=== PATIENT | female | born 1955 | race Caucasian/White ===

== ENCOUNTER 2016-05-17 13:17 | Observation (INO) ==
--- NOTE | 2016-05-17 13:25 | Emergency Department Note ---
Disposition Clinical Impression: UTI (urinary tract infection), Dehydration, Anorexia, Elevated liver enzymes Disposition: Admitted As Inpatient Referrals: NO,PCP [Non-Partnered Physician] - Forms: ED Satisfaction Letter General Adult HPI - General Chief complaint: ED Syncope Stated complaint: syncope Time Seen by Provider: 05/17/16 13:21 Nursing Notes Reviewed: Yes Vital Signs Reviewed: Yes - Related Data Home Medications Medication Instructions Recorded Confirmed Lovastatin [Altoprev] 20 mg PO QPM 12/07/14 03/08/16 Nadolol [Corgard] 40 mg PO QPM 12/07/14 03/08/16 Rizatriptan Benzoate [Maxalt] 10 mg PO AD PRN 12/07/14 03/08/16 Topiramate [Topamax] 100 mg PO QPM 12/07/14 03/08/16 TraZODone 50 mg PO HS 12/07/14 03/08/16 Ibuprofen [Motrin] 600 mg PO Q6HR PRN 03/08/16 03/08/16 Lipase/Protease/Amylase [Creon Dr 1 each PO 03/08/16 12,000 Units Capsule] Venlafaxine [Effexor] 75 mg PO DAILY 03/08/16 03/08/16 Previous Rx's Medication Instructions Recorded OxyCODONE Immed Rel [Roxicodone 5 5 mg PO Q6HR PRN #20 tablet 03/07/16 MG] Allergies Allergy/AdvReac Type Severity Reaction Status Date / Time No Known Allergies Allergy Verified 05/17/16 13:24 Past Medical History - Past Medical History Medical history: Reports: hyperlipidemia, migraine Surgical history: Reports: appendectomy, breast surgery, other Psychiatric history: Reports: anxiety TOBACCO BUYER history: Reports: other - Social History Smoking Status: Never smoker Smokeless Tobacco Status: No Alcohol use: Reports: unknown, occasionally Drug use: Reports: none Course Vital Signs Temperature 97.4 F L 05/17/16 13:20 Pulse Rate 77 05/17/16 13:20 Respiratory Rate 14 05/17/16 13:20 Blood Pressure 120/75 05/17/16 13:20 O2 Sat by Pulse Oximetry 97 05/17/16 13:20 Temperature 97.4 F L 05/17/16 13:20 Pulse Rate 77 05/17/16 13:20 Respiratory Rate 14 05/17/16 13:20 Blood Pressure 120/75 05/17/16 13:20 O2 Sat by Pulse Oximetry 97 05/17/16 13:20 Oxygen Delivery Oxygen Delivery Room Air Medical Decision Making - MDM Narrative Medical decision making narrative: I examined this patient and my medical decision-making was reviewed with the .NET ARCHITECT/PA/Advanced Practice Nurse/Resident Physician. I agree with the documented findings, disposition and treatment plan as described except to the extent set forth below. Patient seen on arrival with EMS and Dr. Gao, agree with his evaluation and management plan supervised the care of the patient 's stay. Patient was diagnosed UTI has been feeling weak. Had a syncopal episode home today were getting in the shower. Denies any injuries. Stable vital signs per medics. According to reevaluate her check a urinalysis vital signs in EKG. She is in agreement with plan. She denies any pain and is nontoxic in appearance. 1354 hrs.: Patient's daughter is here and says that she just has not been doing well last couple days was prescribed an antibiotic for UTI by her primary care physician this week. She has been taking it this does not appear to be getting better she has been lying around a lot denies any pain just not been feeling well and had a near syncopal episode when she get into the shower today. We will go ahead and continue her workup plan and reassessment. Head CT 05/17/16 14:13 IMPRESSION: No acute intracranial abnormality. D/ / Ken Robin MD / Ken Robin MD Interpreting Provider: Ken Robin MD 1650 hrs: Patient is still not hungry not drinking well. She is improved with her hydration here. Her LFTs using the 67 arranger now the 200 range. She does have a positive acetaminophen but she will he took 1 g today. Denies any chronic acetaminophen ingestion. Were going to go and bring her into the hospital. And I think she will do better with getting fluids and hydration overnight and then hopefully go home tomorrow. She is in agreement with this plan. We discussed this with the hospitalist. - Lab Data Result diagrams: 05/17/16 14:39 02/24/17 14:39 Lab Results 05/17/16 05/17/16 05/17/16 Range/Units 14:21 14:39 14:39 WBC 7.8 (4.3-11.1) K/mcL RBC 4.93 (3.82-4.97) M/mcL Hgb 13.4 (11.5-15.4) g/dL Hct 41.9 (35.3-44.9) % MCV 85.0 (83.0-100.0) fL MCH 27.2 L (28.0-33.3) pg MCHC 32.0 (31.6-35.5) g/dL RDW 14.4 (11.5-14.5) % Plt Count 109 L (140-400) K/mcL MPV 9.8 (9.4-12.4) fL Immature Gran % 0.5 (0-4) % Seg Neutrophils % 92.4 % Lymphocytes % 4.4 % Monocytes % 2.2 % Eosinophils % 0.1 % Basophils % 0.4 % Neutrophils # 7.2 (1.6-8.9) K/mcL Lymphocytes # 0.3 L (0.6-4.6) K/mcL Monocytes # 0.2 (0.0-1.3) K/mcL Eosinophils # 0.0 (0.0-0.6) K/mcL Basophils # 0.0 (0.0-0.2) K/mcL Sodium 137 (136-145) mEq/L Potassium 3.9 (3.5-4.5) mEq/L Chloride 108 (98-109) mEq/L Carbon Dioxide 18 L (19-29) mEq/L BUN 18 (7-20) mg/dL Creatinine 0.76 (0.57-1.11) mg/dL Est GFR ( Amer) > 60 (> 60) Est GFR (Non-Af Amer) > 60 (> 60) BUN/Creatinine Ratio 24 (6-26) Glucose 172 H (70-99) mg/dL Calculated Osmolality 290 (280-300) Calcium 9.0 (8.6-10.8) mg/dL Total Bilirubin 1.9 H (0.2-1.2) mg/dL AST 226 H (5-34) Units/L ALT 210 H (0-55) Units/L Alkaline Phosphatase 265 H (38-126) Units/L Creatine Kinase 49 (29-168) Units/L Troponin I 0.00 (0-0.03) ng/mL Serum Total Protein 7.1 (6.0-8.3) g/dL Albumin 3.3 L (3.5-5.0) g/dL Globulin 3.8 H (2.4-3.5) g/dL Albumin/Globulin Ratio 0.9 L (1.1-2.2) Lipase 40 (8-78) Units/L Urine Color (Yellow) Urine Clarity (Clear) Urine pH Ur Specific [place] (1.010-1.025) Urine Protein Urine Glucose (UA) Urine Ketones Urine Blood Urine Nitrite Urine Bilirubin Urine Urobilinogen Ur Leukocyte Esterase Urine Microscopic RBC (0-3) per hpf Urine Microscopic WBC (0-3) per hpf Ur Squamous Epith Cells (None-Few) per lpf Amorphous Sediment (Few) Urine Bacteria (None-Few) per hpf Hyaline Casts (None-Few) per lpf Granular Casts (None Seen) per lpf Urine Mucus (Few) Ur Culture Indicated? (NO) Acetaminophen 7.0 L (10-30) mcg/mL 05/17/16 Range/Units 15:23 WBC (4.3-11.1) K/mcL RBC (3.82-4.97) M/mcL Hgb (11.5-15.4) g/dL Hct (35.3-44.9) % MCV (83.0-100.0) fL MCH (28.0-33.3) pg MCHC (31.6-35.5) g/dL RDW (11.5-14.5) % Plt Count (140-400) K/mcL MPV (9.4-12.4) fL Immature Gran % (0-4) % Seg Neutrophils % % Lymphocytes % % Monocytes % % Eosinophils % % Basophils % % Neutrophils # (1.6-8.9) K/mcL Lymphocytes # (0.6-4.6) K/mcL Monocytes # (0.0-1.3) K/mcL Eosinophils # (0.0-0.6) K/mcL Basophils # (0.0-0.2) K/mcL Sodium (136-145) mEq/L Potassium (3.5-4.5) mEq/L Chloride (98-109) mEq/L Carbon Dioxide (19-29) mEq/L BUN (7-20) mg/dL Creatinine (0.57-1.11) mg/dL Est GFR ( Amer) (> 60) Est GFR (Non-Af Amer) (> 60) BUN/Creatinine Ratio (6-26) Glucose (70-99) mg/dL Calculated Osmolality (280-300) Calcium (8.6-10.8) mg/dL Total Bilirubin (0.2-1.2) mg/dL AST (5-34) Units/L ALT (0-55) Units/L Alkaline Phosphatase (38-126) Units/L Creatine Kinase (29-168) Units/L Troponin I (0-0.03) ng/mL Serum Total Protein (6.0-8.3) g/dL Albumin (3.5-5.0) g/dL Globulin (2.4-3.5) g/dL Albumin/Globulin Ratio (1.1-2.2) Lipase (8-78) Units/L Urine Color [place] A (Yellow) Urine Clarity Cloudy A (Clear) Urine pH TNP Ur Specific [place] 1.022 (1.010-1.025) Urine Protein TNP Urine Glucose (UA) TNP Urine Ketones TNP Urine Blood TNP Urine Nitrite TNP Urine Bilirubin TNP Urine Urobilinogen TNP Ur Leukocyte Esterase TNP Urine Microscopic RBC 0-3 (0-3) per hpf Urine Microscopic WBC 5-15 H (0-3) per hpf Ur Squamous Epith Cells Many H (None-Few) per lpf Amorphous Sediment Moderate H (Few) Urine Bacteria None Seen (None-Few) per hpf Hyaline Casts Many H (None-Few) per lpf Granular Casts Few H (None Seen) per lpf Urine Mucus Many H (Few) Ur Culture Indicated? YES A (NO) Acetaminophen (10-30) mcg/mL
[2016-05-17] MEDS ORDERED: 0.9 % Sodium Chloride 1,000 ML IVC ONE (14:25)
[2016-05-17 14:48] LABS: Basophils % 0.4 %; Eosinophils % 0.1 %; Hematocrit 41.9 % (35.3-44.9); Hemoglobin 13.4 g/dL (11.5-15.4); Immature Granulocytes % 0.5 % (0-4); Lymphocytes # 0.3 K/mcL (0.6-4.6); Lymphocytes % 4.4 %; Mean Corpuscular Hemoglobin 27.2 pg (28.0-33.3); Mean Platelet Volume 9.8 fL (9.4-12.4); Monocytes # 0.2 K/mcL (0.0-1.3); Monocytes % 2.2 %; Neutrophils # 7.2 K/mcL (1.6-8.9); Platelet Count 109 K/mcL (140-400); Red Blood Count 4.93 M/mcL (3.82-4.97); Red Cell Distribution Width 14.4 % (11.5-14.5); Segmented Neutrophils % 92.4 %
[2016-05-17 15:05] LABS: Alanine Aminotransferase 210 Units/L (0-55); Albumin 3.3 g/dL (3.5-5.0); Albumin/Globulin Ratio 0.9 (1.1-2.2); Alkaline Phosphatase 265 Units/L (38-126); Aspartate Amino Transferase 226 Units/L (5-34); BUN/Creatinine Ratio 24 (6-26); Bilirubin,Total 1.9 mg/dL (0.2-1.2); Blood Urea Nitrogen 18 mg/dL (7-20); Carbon Dioxide 18 mEq/L (19-29); Chloride 108 mEq/L (98-109); Creatine Kinase 49 Units/L (29-168); Globulin 3.8 g/dL (2.4-3.5); Glucose 172 mg/dL (70-99); Lipase 40 Units/L (8-78); Osmolality,Calculated 290 (280-300); Potassium 3.9 mEq/L (3.5-4.5); Sodium 137 mEq/L (136-145); Total Protein 7.1 g/dL (6.0-8.3); eGFR For African Americans > 60 (> 60); eGFR For Non-African Americans > 60 (> 60)
[2016-05-17] MEDS ORDERED: Acetaminophen 325 MG TABLET PO ONE (15:16)
[2016-05-17] MEDS ORDERED: *HR* Nalbuphine 20 MG/ML AMPUL IVP ONE (15:19)
[2016-05-17 15:41] LABS: Clarity,Urine Cloudy (Clear); Color,Urine Orange (Yellow); Specific Gravity,Urine 1.022 (1.010-1.025)
[2016-05-17 15:44] LABS: Bacteria,Urine None Seen per hpf (None-Few); RBC,Urine 0-3 per hpf (0-3); Squamous Epithelial Cell,Urine Many per lpf (None-Few)
[2016-05-17 15:59] LABS: Amorphous Sediment,Urine Moderate (Few); Granular Casts,Urine Few per lpf (None Seen); Hyaline Casts,Urine Many per lpf (None-Few); Mucus,Urine Many (Few)
--- NOTE | 2016-05-17 16:12 | Emergency Department Note ---
Disposition Clinical Impression: Dehydration, Anorexia, Elevated liver enzymes UTI (urinary tract infection) Qualifiers: Urinary tract infection type: site unspecified Hematuria presence: with hematuria Qualified Code(s): N39.0 - Urinary tract infection, site not specified ; R31.9 - Hematuria, unspecified Disposition: Admitted As Inpatient Referrals: NO,PCP [Non-Partnered Physician] - Forms: ED Satisfaction Letter General Adult HPI - General Chief complaint: ED Syncope Stated complaint: syncope Time Seen by Provider: 05/17/16 13:21 Source: EMS Nursing Notes Reviewed: Yes Vital Signs Reviewed: Yes - History of Present Illness HPI Narrative: Mrs. Nicholas, 60-year-old female, presents from home by EMS with chief complaint of a syncopal episode. Onset just prior to arrival. Patient lives at home with her . Her daughter has been checking on her. Patient was diagnosed with UTI last Friday and has been staying in bed since with decreased by mouth intake. Patient's daughter visited her this morning in her home and gave her a glass of water; patient had no appetite at that time. At lunch, patient revisited her mother who had no appetite for a milkshake. Patient assisted mother to her shower with shower chair. Patient's daughter describes watching her mother become pale, with blank stare, cyanotic lips, unresponsive. The patient. Her mother out of the shower and later on the floor after which she called EMS. On EMS arrival, patient was alert, oriented, talkative, with no memory of this syncopal episode. PMH: Hypertension, hyperlipidemia, chronic migraine. PSH: Whipple, cholecystectomy, appendectomy. Patient's UTI was diagnosed Friday by Jahaira Travis, nurse practitioner for Dr. Hillman. Pain Scale: 3 - Related Data Home Medications Medication Instructions Recorded Confirmed Lovastatin [Altoprev] 20 mg PO QPM 12/07/14 03/08/16 Nadolol [Corgard] 40 mg PO QPM 12/07/14 03/08/16 Rizatriptan Benzoate [Maxalt] 10 mg PO AD PRN 12/07/14 03/08/16 Topiramate [Topamax] 100 mg PO QPM 12/07/14 03/08/16 TraZODone 50 mg PO HS 12/07/14 03/08/16 Ibuprofen [Motrin] 600 mg PO Q6HR PRN 03/08/16 03/08/16 Lipase/Protease/Amylase [Creon Dr 1 each PO 03/08/16 12,000 Units Capsule] Venlafaxine [Effexor] 75 mg PO DAILY 03/08/16 03/08/16 Previous Rx's Medication Instructions Recorded OxyCODONE Immed Rel [Roxicodone 5 5 mg PO Q6HR PRN #20 tablet 03/07/16 MG] Allergies Allergy/AdvReac Type Severity Reaction Status Date / Time No Known Allergies Allergy Verified 05/17/16 13:24 All systems ED: reviewed and negative except as stated. Constitutional: Reports: fever, chills, weakness Eyes: Denies: vision change ENT ED: Denies: congestion, dysphagia Cardiovascular: Reports: dyspnea on exertion. Denies: chest pain, palpitations Respiratory: Denies: cough, dyspnea, wheezes, hemoptysis Gastrointestinal: Reports: nausea. Denies: abdominal pain, vomiting, diarrhea, constipation, hematemesis, melena, hematochezia Genitourinary: Reports: urgency, dysuria, frequency Musculoskeletal: Denies: back pain, neck pain Integumentary: Denies: rash, abrasion, lesions Neurological: Reports: headache, weakness. Denies: numbness, paresthesias, confusion, vertigo Hematological/Lymphatic: Denies: easy bleeding, easy bruising Past Medical History - Past Medical History Medical history: Reports: hyperlipidemia, migraine Surgical history: Reports: appendectomy, breast surgery, other Psychiatric history: Reports: anxiety RESPITE PROVIDER history: Reports: other - Social History Smoking Status: Never smoker Smokeless Tobacco Status: No Alcohol use: Reports: unknown, occasionally Drug use: Reports: none Physical Exam General: Patient is alert, oriented, and in no acute distress. She is severing beneath the blankets. HEENT: No facial asymmetry. Head is normocephalic and atraumatic. PERRLA, EOMI. trachea midline. Cardiovascular: Heart regular rate and rhythm without clicks, rubs, gallops, or murmurs. No JVD. PMI nondisplaced. No pedal edema. Bilateral radial and posterior tibial pulses 2+. Respiratory: Symmetric chest rise with good respiratory effort. Bilateral breath sounds are clear without wheezing, crackles, or rhonchi. Abdomen: Scaphoid. Bowel sounds present normoactive x-4 quadrants. Abdomen is soft, nondistended, no guarding. Mild diffuse tenderness. No organomegaly noted. Musculoskeletal: Muscle strength 5/5 and symmetric bilaterally in upper and lower extremities. DTRs 2/4 and symmetric bilaterally in upper and lower extremities. Neuro: Cranial nerves II through XII without deficit. Sensation light touch intact. Psych: Patient's affect is appropriate for situation. - General General appearance: alert, in no apparent distress Course Course Narrative: Patient's lab work is concerning for elevated AST, LT, and ALP. She is status post Whipple procedure last May. 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 The mass was benign and she has been cleared by her surgeon. Pancreatic function is normal today. Patient's urinalysis is suspicious for UTI; she is currently taking iridium explaining the orange color. No urine bacteria were seen however there were casts, mucus, significant nitrites, and significant leukocyte esterase as well as white blood cells present. Patient denies history of alcohol abuse, IV drug use, or history of known previous hepatitis. After discussion with the patient and her multiple family members bedside, we have come to a collective agreement to admit the patient for elevated liver enzymes, dysuria, anorexia, dehydration. Patient's does not feel that he can adequately take care of her at home at this time. Vital Signs Temperature 97.4 F L 05/17/16 13:20 Pulse Rate 77 05/17/16 13:20 Respiratory Rate 14 05/17/16 13:20 Blood Pressure 120/75 05/17/16 13:20 O2 Sat by Pulse Oximetry 97 05/17/16 13:20 Temperature 97.4 F L 05/17/16 13:20 Pulse Rate 77 05/17/16 13:20 Respiratory Rate 14 05/17/16 13:20 Blood Pressure 120/75 05/17/16 13:20 O2 Sat by Pulse Oximetry 97 05/17/16 13:20 Oxygen Delivery Oxygen Delivery Room Air Medical Decision Making - Lab Data Result diagrams: 05/17/16 14:39 05/17/16 14:39 Lab Results 05/17/16 05/17/16 05/17/16 Range/Units 14:21 14:39 14:39 WBC 7.8 (4.3-11.1) K/mcL RBC 4.93 (3.82-4.97) M/mcL Hgb 13.4 (11.5-15.4) g/dL Hct 41.9 (35.3-44.9) % MCV 85.0 (83.0-100.0) fL MCH 27.2 L (28.0-33.3) pg MCHC 32.0 (31.6-35.5) g/dL RDW 14.4 (11.5-14.5) % Plt Count 109 L (140-400) K/mcL MPV 9.8 (9.4-12.4) fL Immature Gran % 0.5 (0-4) % Seg Neutrophils % 92.4 % Lymphocytes % 4.4 % Monocytes % 2.2 % Eosinophils % 0.1 % Basophils % 0.4 % Neutrophils # 7.2 (1.6-8.9) K/mcL Lymphocytes # 0.3 L (0.6-4.6) K/mcL Monocytes # 0.2 (0.0-1.3) K/mcL Eosinophils # 0.0 (0.0-0.6) K/mcL Basophils # 0.0 (0.0-0.2) K/mcL Sodium 137 (136-145) mEq/L Potassium 3.9 (3.5-4.5) mEq/L Chloride 108 (98-109) mEq/L Carbon Dioxide 18 L (19-29) mEq/L BUN 18 (7-20) mg/dL Creatinine 0.76 (0.57-1.11) mg/dL Est GFR ( Amer) > 60 (> 60) Est GFR (Non-Af Amer) > 60 (> 60) BUN/Creatinine Ratio 24 (6-26) Glucose 172 H (70-99) mg/dL Calculated Osmolality 290 (280-300) Calcium 9.0 (8.6-10.8) mg/dL Total Bilirubin 1.9 H (0.2-1.2) mg/dL AST 226 H (5-34) Units/L ALT 210 H (0-55) Units/L Alkaline Phosphatase 265 H (38-126) Units/L Creatine Kinase 49 (29-168) Units/L Troponin I 0.00 (0-0.03) ng/mL Serum Total Protein 7.1 (6.0-8.3) g/dL Albumin 3.3 L (3.5-5.0) g/dL Globulin 3.8 H (2.4-3.5) g/dL Albumin/Globulin Ratio 0.9 L (1.1-2.2) Lipase 40 (8-78) Units/L Urine Color (Yellow) Urine Clarity (Clear) Urine pH Ur Specific [place] (1.010-1.025) Urine Protein Urine Glucose (UA) Urine Ketones Urine Blood Urine Nitrite Urine Bilirubin Urine Urobilinogen Ur Leukocyte Esterase Urine Microscopic RBC (0-3) per hpf Urine Microscopic WBC (0-3) per hpf Ur Squamous Epith Cells (None-Few) per lpf Amorphous Sediment (Few) Urine Bacteria (None-Few) per hpf Hyaline Casts (None-Few) per lpf Granular Casts (None Seen) per lpf Urine Mucus (Few) Ur Culture Indicated? (NO) Acetaminophen 7.0 L (10-30) mcg/mL 05/17/16 Range/Units 15:23 WBC (4.3-11.1) K/mcL RBC (3.82-4.97) M/mcL Hgb (11.5-15.4) g/dL Hct (35.3-44.9) % MCV (83.0-100.0) fL MCH (28.0-33.3) pg MCHC (31.6-35.5) g/dL RDW (11.5-14.5) % Plt Count (140-400) K/mcL MPV (9.4-12.4) fL Immature Gran % (0-4) % Seg Neutrophils % % Lymphocytes % % Monocytes % % Eosinophils % % Basophils % % Neutrophils # (1.6-8.9) K/mcL Lymphocytes # (0.6-4.6) K/mcL Monocytes # (0.0-1.3) K/mcL Eosinophils # (0.0-0.6) K/mcL Basophils # (0.0-0.2) K/mcL Sodium (136-145) mEq/L Potassium (3.5-4.5) mEq/L Chloride (98-109) mEq/L Carbon Dioxide (19-29) mEq/L BUN (7-20) mg/dL Creatinine (0.57-1.11) mg/dL Est GFR ( Amer) (> 60) Est GFR (Non-Af Amer) (> 60) BUN/Creatinine Ratio (6-26) Glucose (70-99) mg/dL Calculated Osmolality (280-300) Calcium (8.6-10.8) mg/dL Total Bilirubin (0.2-1.2) mg/dL AST (5-34) Units/L ALT (0-55) Units/L Alkaline Phosphatase (38-126) Units/L Creatine Kinase (29-168) Units/L Troponin I (0-0.03) ng/mL Serum Total Protein (6.0-8.3) g/dL Albumin (3.5-5.0) g/dL Globulin (2.4-3.5) g/dL Albumin/Globulin Ratio (1.1-2.2) Lipase (8-78) Units/L Urine Color [place] A (Yellow) Urine Clarity Cloudy A (Clear) Urine pH TNP Ur Specific [place] 1.022 (1.010-1.025) Urine Protein TNP Urine Glucose (UA) TNP Urine Ketones TNP Urine Blood TNP Urine Nitrite TNP Urine Bilirubin TNP Urine Urobilinogen TNP Ur Leukocyte Esterase TNP Urine Microscopic RBC 0-3 (0-3) per hpf Urine Microscopic WBC 5-15 H (0-3) per hpf Ur Squamous Epith Cells Many H (None-Few) per lpf Amorphous Sediment Moderate H (Few) Urine Bacteria None Seen (None-Few) per hpf Hyaline Casts Many H (None-Few) per lpf Granular Casts Few H (None Seen) per lpf Urine Mucus Many H (Few) Ur Culture Indicated? YES A (NO) Acetaminophen (10-30) mcg/mL
[2016-05-17] MEDS ORDERED: Naloxone 0.4 MG/ML INJ IVP PRN (18:32)
[2016-05-17] MEDS ORDERED: Ondansetron 4 MG/2 ML VIAL IVP PRN (18:33)
[2016-05-17] MEDS ORDERED: Fluticasone Propionate Nasal 50 MCG/SPRAY BOTTLE NS PRN (18:40)
--- NOTE | 2016-05-17 18:41 | Internal Med History&Physical ---
Date of Encounter: 05/17/16 Time of Encounter: 18:00 Assessment and Plan (1) Episode of syncope Current visit: Yes Status: Acute 1 patient has been experiencing chills and achiness fatigue recent diagnosis of UTI. Patient has been in bed for approximately 4 days with poor oral intake. She had an unresponsive episode after getting out of bed.-Suspect this is related to orthostatic changes as well as dehydration. We will obtain orthostatic vitals 2. We will give IV fluids 3. fall precautions 4 continuous cardiac monitoring Qualifiers: Syncope type: unspecified Qualified Code(s): R55 - Syncope and collapse (2) Elevated liver enzymes Current visit: Yes Status: Acute 1 AST 226- was 73 on 10/19/15, ALT 210-62.7, alkaline phosphatase 265 - 140 on 10/19/15. Patient has had steady weight loss over the past year status post Whipple procedure in May 2015 at [facility]. 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 The mass was benign she had been cleared by her surgeon. The patient states that surgery had been monitoring her liver enzymes in the hip and slightly elevated he was not considered but they have not been this high. Suspect this is related to patient's weight loss as well as patient's recent illness and she is on multiple medications including a statin could cause the increase. We will hold statin and other medications for now. Recheck liver enzymes have patient follow-up as outpatient [address] of abdomen 3 avoid hepatotoxins (3) Hyperlipidemia Current visit: No Status: Chronic We will hold statin for now due to elevated liver enzymes Qualifiers: Hyperlipidemia type: unspecified Qualified Code(s): E78.5 - Hyperlipidemia , unspecified (4) UTI (urinary tract infection) Current visit: Yes Status: Acute 1 patient was treated as outpatient for acute cystitis. She had positive nitrates as well as leuk esterase and urinalysis. She was started on Macrobid and Pyridium. We will hold Macrobid for now due to elevated liver enzymes and start on Rocephin We will obtain urine culture prior to initiation of IV antibiotic Qualifiers: Urinary tract infection type: acute cystitis Hematuria presence: without hematuria Qualified Code(s): N30.00 - Acute cystitis without hematuria (5) DVT prophylaxis Current visit: Yes Status: Acute POLLY turner Internal Medicine - H&P: HPI Chief complaint: syncope Admitted From: Emergency Dept Plans for Post Hospital Care: Home History of present illness: Ms. Nicholas is a 60 year old female hyperlipidemia, chronic migraine s/p 2015. According the patient she was diagnosed on Friday with a UTI and was started on Macrobid and Pyridium. She should complaints of fever chills body aches. She has been in bed since Friday and has decreased oral intake. Her daughter visited her this morning she did consume some toast and water . At lunchtime daughter returned patient still has no appetite and a daughter assisted her up into a shower chair for shower. He the patient became pale blank stare and cyanotic lips and unresponsive. The daughter called EMS. Upon arrival patient was alert and oriented and had no memory of the syncopal episode. She was transported to the ER for evaluation. According to ER notes CT of head was negative for any acute intracranial abnormality. Lab work was unremarkable except for patient did have elevated AST and ALTs. Urinalysis was positive for nitrates small amount leuk esterase. Urine culture was negative for growth. Patient was given IV fluids some Zofran. She has been admitted for further workup and evaluation. Presently the patient is alert appropriate she denies any chest pain or shortness of breath. At present time her systolic blood pressure is 88 rest vitals are stable. Complains of recent hx of N/V weight loss [place], lightheadedness. Denies any CP SOB or palpitations I review the case with who agrees with plan Past Med Surg Social Fam HX - Past Medical History Medical history: hyperlipidemia, migraine Psychiatric history: anxiety - Past Surgical History Surgical History: appendectomy, breast surgery, other - Social History Smoking Status: Never smoker Smokeless Tobacco Status: No Alcohol use: occasionally Drug use: none - Family History Mother Living Status: Hx Family Cardiac Disorders: Yes (cva) Hx Family Endocrine Disorder: Yes (dm) Father Living Status: Hx Family Cardiac Disorders: Yes (Reported mi, patient was estranged from father ) Internal Medicine - H&P: Meds Lovastatin [Altoprev] 20 mg PO QPM 12/07/14 [History] Nadolol [Corgard] 40 mg PO QPM 12/07/14 [History] Rizatriptan Benzoate [Maxalt] 10 mg PO DAILY PRN 12/07/14 [History] Topiramate [Topamax] 100 mg PO QPM 12/07/14 [History] TraZODone 50 mg PO HS 12/07/14 [History] Lipase/Protease/Amylase [Louise Bearden 12,000 Units Capsule] 2 each PO TIDWM [History] Venlafaxine [Effexor] 75 mg PO DAILY 03/08/16 [History] Fluticasone Propionate Nasal [Flonase] 50 - 100 mcg NS DAILY PRN 05/17/16 [ History] Nitrofurantoin (BID) [Macrobid] 100 mg PO Q12H 05/17/16 [History] Ondansetron ODT [Zofran ODT] 4 mg SL Q4-6H PRN 05/17/16 [History] Allergies No Known Allergies Allergy (Verified 05/17/16 13:24) All Systems PM: A 10-system review of systems was performed and is negative for pertinent findings except as documented above in the HPI. - Constitutional Constitutional: anorexia, chills, fatigue, weakness - Cardiovascular Cardiovascular ROS IM: no chest pain, no diaphoresis, no dyspnea, no lightheadedness, no palpitations, no syncope - Respiratory Respiratory: no cough, no dyspnea, no wheezing, no excessive phlegm production - Gastrointestinal Gastrointestinal: early satiety, no abdominal pain, no diarrhea, no hematemesis , no hematochezia, no melena, no nausea, no vomiting - Genitourinary Genitourinary: dysuria, no change in urinary stream, no flank pain, no hematuria - Neurological Neurological ROS: headache(s), no confusion, no convulsions, no focal weakness, no numbness, no tingling, no tremor(s) - Constitutional Vitals: Temp Pulse Resp BP Pulse Ox 97.4 F L 77 14 93/54 97 05/17/16 13:20 05/17/16 13:20 05/17/16 18:08 05/17/16 18:08 05/17/16 13:20 General appearance: Present: A&O X 3, underweight, answers questions appropriately - Head Head exam: Present: atraumatic, normocephalic - Eye Eye exam: Present: PERRL, conjuntiva pink, sclera anicteric Pupils: Present: PERRL - Neck Neck exam general surgery: Present: supple, trachea midline. Absent: lymphadenopathy - Respiratory Respiratory exam: Present: CTAB. Absent: accessory muscle use, rales, rhonchi, wheezes - Cardiovascular Cardiovascular exam: Present: RRR, +S1, +S2. Absent: diastolic murmur, gallop, rubs, systolic murmur - GI/Abdominal GI/Abdominal exam: Present: normal bowel sounds, soft, tenderness, no peritoneal signs. Absent: distended Additional comments: diffuse abd tenderness on palpation - Extremities Exam Extremities exam: Present: warm, radial pulses palpable and symetrical. Absent : calf tenderness, cyanotic, pedal edema - Neurological Exam Neurological exam: Present: CN II-XII intact, oriented X3, no focal deficits. Absent: pronater drift, facial droop, speech deficit - Skin Skin exam: Present: dry, intact Internal Med - H&P Results - Labs CBC & Chem 7: 05/17/16 14:39 05/17/16 14:39 - Diagnostic Studies CT scan - head Additional comments: per radiology read no acute intracranial abnormalities
[2016-05-17] MEDS: 0.9 % Sodium Chloride 1,000 ML IVC SCH (19:00)
[2016-05-17] MEDS: Topiramate 100 MG TABLET PO SCH (22:25)
[2016-05-18] MEDS: 0.9 % Sodium Chloride 1,000 ML IVC SCH ×2 (03:45→14:19)
[2016-05-18] MEDS ORDERED: Ketorolac 30 MG/ML VIAL IM ONE (05:00)
[2016-05-18 05:20] LABS: Basophils % 0.6 %; Eosinophils % 0.9 %; Hematocrit 37.4 % (35.3-44.9); Hemoglobin 12.2 g/dL (11.5-15.4); Lymphocytes # 0.7 K/mcL (0.6-4.6); Lymphocytes % 20.4 %; Mean Corpuscular HGB Conc 32.6 g/dL (31.6-35.5); Mean Corpuscular Hemoglobin 27.5 pg (28.0-33.3); Mean Corpuscular Volume 84.4 fL (83.0-100.0); Mean Platelet Volume 10.4 fL (9.4-12.4); Monocytes # 0.2 K/mcL (0.0-1.3); Monocytes % 6.4 %; Neutrophils # 2.4 K/mcL (1.6-8.9); Platelet Count 129 K/mcL (140-400); Red Blood Count 4.43 M/mcL (3.82-4.97); Red Cell Distribution Width 14.5 % (11.5-14.5); Segmented Neutrophils % 71.7 %
[2016-05-18 05:36] LABS: Alanine Aminotransferase 221 Units/L (0-55); Albumin 2.9 g/dL (3.5-5.0); Albumin/Globulin Ratio 0.9 (1.1-2.2); Alkaline Phosphatase 303 Units/L (38-126); Aspartate Amino Transferase 264 Units/L (5-34); BUN/Creatinine Ratio 18 (6-26); Bilirubin,Direct 1.4 mg/dL (0.0-0.5); Bilirubin,Indirect 0.7 mg/dL (0.0-1.2); Bilirubin,Total 2.1 mg/dL (0.2-1.2); Blood Urea Nitrogen 11 mg/dL (7-20); Calcium 8.4 mg/dL (8.6-10.8); Carbon Dioxide 16 mEq/L (19-29); Chloride 113 mEq/L (98-109); Globulin 3.4 g/dL (2.4-3.5); Glucose 88 mg/dL (70-99); Osmolality,Calculated 283 (280-300); Potassium 3.4 mEq/L (3.5-4.5); Sodium 137 mEq/L (136-145); Total Protein 6.3 g/dL (6.0-8.3); eGFR For African Americans > 60 (> 60); eGFR For Non-African Americans > 60 (> 60)
[2016-05-18 05:46] LABS: Platelet Estimate Normal (Normal); Reactive Lymphocytes Present (Not Present); Toxic Granulation Present (Not Present)
[2016-05-18] MEDS ORDERED: *HR* HYDROcodone/Acet 5/325 mg TABLET PO ONE (15:07)
--- NOTE | 2016-05-18 15:57 | Internal Med Progress Note ---
Date of Encounter: 05/18/16 Time of Encounter: 15:54 - Assessment and plan (1) Elevated liver enzymes Current Visit: Yes Status: Acute Assessment and plan: unclear etiology, however she had recent whipple procedure for a benign pancreatic mass and reports that ever since her lfts has been elevated. she has no symptoms now, CT abd shows post op changes, pneumobilia as before and non specific periportal edema. jannette send for hepatitis panel, serum acetaminophen level is normal, will repeat hepatic panel along with CBC and Chem-7 tomorrow. Avoid hepatotoxins. (2) Episode of syncope Current Visit: Yes Status: Acute Assessment and plan: Possible secondary to poor oral intake and dehydration prior to presentation. Denies episodes of dizziness, and reports that he feels much better than before. Qualifiers: Syncope type: unspecified Qualified Code(s): R55 - Syncope and collapse (3) UTI (urinary tract infection) Current Visit: Yes Status: Acute Assessment and plan: Has symptoms of UTI which for her has improved after the IV antibiotics. Denies any fever, urine culture shows no growth. We will continue antibiotics for a total of 7 days. Qualifiers: Urinary tract infection type: acute cystitis Hematuria presence: without hematuria Qualified Code(s): N30.00 - Acute cystitis without hematuria (4) Hypertension Current Visit: No Status: Acute Assessment and plan: Stable Qualifiers: Hypertension type: essential hypertension Qualified Code(s): I10 - Essential (primary) hypertension - Time Spent With Patient 25 - 35 minutes - Subjective Interval history: admitted for syncope, UTI and elevated liver enzymes. reports that she feels a lot better , she has some urgency during micturition however that has resolved. she was getting nitrofurantoin for UTI which was changed to ceftriaxone . no fever, no abdominal pain , n/v. - Constitutional Vitals: Temp Pulse Resp BP Pulse Ox 97.6 F 65 17 144/83 99 05/18/16 14:56 05/18/16 14:56 05/18/16 14:56 05/18/16 14:56 05/18/16 14:56 General appearance: Present: A&O X 3, underweight, answers questions appropriately Exam: - Head Head exam: Present: atraumatic, normocephalic - Eye Eye exam: Present: PERRL, conjuntiva pink, sclera anicteric Pupils: Present: PERRL - Neck Neck exam general surgery: Present: supple, trachea midline. Absent: lymphadenopathy - Respiratory Respiratory exam: Present: CTAB. Absent: accessory muscle use, rales, rhonchi, wheezes - Cardiovascular Cardiovascular exam: Present: RRR, +S1, +S2. Absent: diastolic murmur, gallop, rubs, systolic murmur - GI/Abdominal GI/Abdominal exam: Present: normal bowel sounds, soft, non tender, no peritoneal signs. Absent: distended - Extremities Exam Extremities exam: Present: warm, radial pulses palpable and symetrical. Absent : calf tenderness, cyanotic, pedal edema - Neurological Exam Neurological exam: Present: CN II-XII intact, oriented X3, no focal deficits. Absent: pronater drift, facial droop, speech deficit - Skin Skin exam: Present: dry, intact Internal Medicine: Result - Labs CBC & Chem 7: 05/18/16 05:03 05/18/16 05:03 Labs: Short CBC 05/18/16 Range/Units 05:03 WBC 3.3 L D (4.3-11.1) K/mcL Hgb 12.2 (11.5-15.4) g/dL Hct 37.4 (35.3-44.9) % Plt Count 129 L (140-400) K/mcL Neutrophils # 2.4 (1.6-8.9) K/mcL BMP 05/18/16 05:03 Sodium 137 Potassium 3.4 L Chloride 113 H Carbon Dioxide 16 L BUN 11 Creatinine 0.62 Glucose 88 Calcium 8.4 L Liver Function 05/17/16 05/18/16 Range/Units 19:26 05:03 Total Bilirubin 2.1 H (0.2-1.2) mg/dL Direct Bilirubin 1.4 H 1.4 H (0.0-0.5) mg/dL AST 264 H (5-34) Units/L ALT 221 H (0-55) Units/L Alkaline Phosphatase 303 H (38-126) Units/L Albumin 2.9 L (3.5-5.0) g/dL - Impressions Impressions Abdomen CT 05/17/16 18:29 IMPRESSION: Small calcification is seen in the bladder measuring 1 mm. This could represent recently passed stone or bladder calcification Mild pneumobilia, similar to prior. There is nonspecific periportal edema. Splenomegaly with postsurgical change from Whipple procedure. Pancreatic ductal dilatation is unchanged D/ / Fernie Ron MD / Fernie Ron MD Interpreting Provider: Fernie Ron MD Consult Discharge Plan - Plan Referrals: Chantel Villegas DO [Primary Care Provider] -
[2016-05-18] MEDS: Topiramate 100 MG TABLET PO SCH (16:42)
[2016-05-19 05:07] LABS: Basophils % 0.8 %; Eosinophils # 0.2 K/mcL (0.0-0.6); Eosinophils % 4.8 %; Hemoglobin 11.7 g/dL (11.5-15.4); Immature Granulocytes % 0.5 % (0-4); Lymphocytes # 0.9 K/mcL (0.6-4.6); Lymphocytes % 22.6 %; Mean Corpuscular HGB Conc 32.5 g/dL (31.6-35.5); Mean Corpuscular Hemoglobin 27.5 pg (28.0-33.3); Mean Corpuscular Volume 84.5 fL (83.0-100.0); Mean Platelet Volume 10.4 fL (9.4-12.4); Monocytes # 0.4 K/mcL (0.0-1.3); Monocytes % 9.2 %; Neutrophils # 2.4 K/mcL (1.6-8.9); Platelet Count 124 K/mcL (140-400); Red Blood Count 4.26 M/mcL (3.82-4.97); Segmented Neutrophils % 62.1 %
[2016-05-19 05:26] LABS: Alanine Aminotransferase 172 Units/L (0-55); Albumin 2.6 g/dL (3.5-5.0); Albumin/Globulin Ratio 0.8 (1.1-2.2); Alkaline Phosphatase 315 Units/L (38-126); Aspartate Amino Transferase 147 Units/L (5-34); BUN/Creatinine Ratio 14 (6-26); Bilirubin,Direct 0.8 mg/dL (0.0-0.5); Bilirubin,Indirect 0.8 mg/dL (0.0-1.2); Bilirubin,Total 1.6 mg/dL (0.2-1.2); Blood Urea Nitrogen 8 mg/dL (7-20); Calcium 8.3 mg/dL (8.6-10.8); Carbon Dioxide 17 mEq/L (19-29); Chloride 118 mEq/L (98-109); Globulin 3.1 g/dL (2.4-3.5); Glucose 90 mg/dL (70-99); Osmolality,Calculated 290 (280-300); Potassium 3.1 mEq/L (3.5-4.5); Sodium 141 mEq/L (136-145); Total Protein 5.7 g/dL (6.0-8.3); eGFR For African Americans > 60 (> 60); eGFR For Non-African Americans > 60 (> 60)
[2016-05-19 06:55] VITALS: BP 125/76
[2016-05-19] MEDS ORDERED: Potassium Chloride Elixir 20 MEQ/15 ML UDC PO ONE (07:46)
--- NOTE | 2016-05-19 09:29 | Discharge Summary ---
Date of Encounter: 05/19/16 Time of Encounter: 09:25 - Discharge Diagnosis (1) Elevated liver enzymes Priority: Primary Status: Acute (2) Episode of syncope Priority: Primary Status: Acute Qualifiers: Syncope type: unspecified Qualified Code(s): R55 - Syncope and collapse (3) UTI (urinary tract infection) Priority: Primary Status: Acute Qualifiers: Urinary tract infection type: acute cystitis Hematuria presence: without hematuria Qualified Code(s): N30.00 - Acute cystitis without hematuria (4) Hypertension Priority: Secondary Status: Acute Qualifiers: Hypertension type: essential hypertension Qualified Code(s): I10 - Essential (primary) hypertension - Discharge Medications Prescriptions: Levofloxacin 500 mg PO DAILY #4 tablet Home Medications: Nadolol [Corgard] 40 mg PO QPM 12/07/14 [History] Rizatriptan Benzoate [Maxalt] 10 mg PO DAILY PRN 12/07/14 [History] Topiramate [Topamax] 100 mg PO QPM 12/07/14 [History] TraZODone 50 mg PO HS 12/07/14 [History] Lipase/Protease/Amylase [Creon Dr 12,000 Units Capsule] 2 each PO TIDWM [History] Venlafaxine [Effexor] 75 mg PO DAILY 03/08/16 [History] Fluticasone Propionate Nasal [Flonase] 50 - 100 mcg NS DAILY PRN 05/17/16 [ History] Ondansetron ODT [Zofran ODT] 4 mg SL Q4-6H PRN 05/17/16 [History] Levofloxacin 500 mg PO DAILY #4 tablet 05/19/16 [Rx] Allergies/Adverse Reactions: Allergies No Known Allergies Allergy (Verified 05/17/16 13:24) Procedures/tests Complete & Pending: Procedures Performed prior 72 hours Category Date Time Status CT abdomen wo no iv no oral [CT] Stat Cat Scan 05/17/16 18:29 Completed Date of admission: 05/17/16 17:14 Primary care physician: Chantel Villegas DO Consults: 05/17/16 18:36 Consult to Nutrition [CONS] Routine Comment: Consulting Provider: NUTRITION Reason for Dietary Consult: Supplemental Nutrition 05/17/16 18:37 Consult to Physical Therapy [CONS] Routine Comment: Evaluate, develop and implement POC 05/17/16 18:38 Consult to Occupational Therapy [CONS] Routine Comment: Evaluate, develop and implement POC Discharging clinician: Verona Novoa Anticipated date of discharge: 05/19/16 - Patient Status Disposition: Home, Self-Care Condition: Fair Functional capacity at discharge: independent ambulation Overall status at discharge: patient is back to baseline - Discharge Instructions Instructions: Levofloxacin (By mouth), Dehydration (DC), Urinary Tract Infection in Women (DC) Follow Up With: Chantel Villegas DO [Primary Care Provider] - Additional Instructions: follow up with PCP with repeat LFT in 7-10 days. - Diet and Activity Activity: resume usual activities as tolerated Diet: advance to your usual diet Interval History: Ms. Nicholas is a 60 year old female hyperlipidemia, chronic migraine s/p wh2015. According the patient she was diagnosed on Friday with a UTI and was started on Macrobid and Pyridium. She complains of fever chills body aches. She has been in bed since Friday and has decreased oral intake. as per the daughter, patient became pale blank stare and cyanotic lips and unresponsive. The daughter called EMS. Upon arrival patient was alert and oriented and had no memory of the syncopal episode. She was transported to the ER for evaluation. According to ER notes CT of head was negative for any acute intracranial abnormality. Lab work was unremarkable except for patient did have elevated AST and ALTs. Urinalysis was positive for nitrates small amount leuk esterase. Urine culture was negative for growth. Patient was given IV fluids some Zofran. She has been admitted for further workup and evaluation. She was started on IV ceftriaxone for UTI. Given elevated LFTs, Macrobid was stopped and her atorvastatin was also stopped. She improved with supportive treatment and IV antibiotics, her appetite has improved. Her symptoms of UTI has also improved, though the urine culture has been negative. As per the patient and the family her LFTs has always been elevated ever since the surgery, she followed up with the surgical doctors and was told that it is normal for her, however this time its in 200s. LFTs were monitored daily, she does not have any symptoms of abdominal pain nausea or vomiting. CT abdomen was done which does not show any acute pathology, it does show mild pneumobilia and periportal edema which is not new and is possible post op changes. Repeat LFTs has shown downward trend. Given improvement in clinical condition, she is being discharged today in stable condition to follow up with her PCP with repeat LFTs in a week. I will complete the course of antibiotics for 7 days given symptoms of UTI that has improved with antibiotics. Hospital course: Ms. Nicholas is a 60 year old female Time spent discussing smoking cessation with patient: more than 10 minutes - Time Spent with Patient Total time spent providing and/or coordinating discharge services: Greater than 30 minutes - Constitutional Vitals: Temp Pulse Resp BP Pulse Ox 98.0 F 60 16 125/76 98 05/19/16 06:48 05/19/16 06:48 05/19/16 06:48 05/19/16 06:48 05/19/16 06:48 General appearance: Present: A&O X 3, underweight, answers questions appropriately Exam: - Head Head exam: Present: atraumatic, normocephalic - Eye Eye exam: Present: PERRL, conjuntiva pink, sclera anicteric Pupils: Present: PERRL - Neck Neck exam general surgery: Present: supple, trachea midline. Absent: lymphadenopathy - Respiratory Respiratory exam: Present: CTAB. Absent: accessory muscle use, rales, rhonchi, wheezes - Cardiovascular Cardiovascular exam: Present: RRR, +S1, +S2. Absent: diastolic murmur, gallop, rubs, systolic murmur - GI/Abdominal GI/Abdominal exam: Present: normal bowel sounds, soft,non tender, no peritoneal signs. Absent: distended - Extremities Exam Extremities exam: Present: warm, radial pulses palpable and symetrical. Absent : calf tenderness, cyanotic, pedal edema - Neurological Exam Neurological exam: Present: CN II-XII intact, oriented X3, no focal deficits. Absent: pronater drift, facial droop, speech deficit - Skin Skin exam: Present: dry, intact
--- NOTE | 2016-05-20 06:30 | Electrocardiograph Report ---
[address] [place], [place] [address] Test Date: 2016-05-17 Pat Name: Rosette Nicholas Department: 103 Room: 3A46 Gender: F [employer]: : [id number] Requested By: Alexandr Alamo Order Number: [id number] Reading MD: Macario Ambriz MD Measurements Intervals [place] Rate: 84 P: 89 CO: 153 QRS: 63 QRSD: 100 T: 80 QT: 400 QTc: 441 Interpretive Statements SINUS RHYTHM RIGHT ATRIAL ENLARGEMENT POSSIBLE ANTERIOR MYOCARDIAL INFARCTION, OF INDETERMINATE AGE CONSIDER LATERAL ISCHEMIA Electronically Signed On 05-20-2016 6:28:18 EST by Macario Ambriz MD
[2016-05-22 11:02] LABS: Hepatitis A Antibody IgM Nonreactive (Nonreactive); Hepatitis B Core IgM Nonreactive (Nonreactive); Hepatitis B Surface Antigen Nonreactive (Nonreactive); Hepatitis C Virus Antibody Nonreactive (Nonreactive)
== END 2016-05-19 11:02 | disposition home or self-care (01) ==
LOC: 3ANU 13:17 → EMEROO 13:17 → SUATTDRO 17:14 → 3ANU 18:09
PROVIDERS: ADMIT Family Medicine; ATTEND Internal Medicine Endocrinology, Diabetes & Metabolism